=== PATIENT | female | born 1940 | race Caucasian/White ===

== ENCOUNTER → 2018-03-30 | Outpatient (CLI) | payer MEDICARE, MEDICAID | END | disposition home or self-care (01) | LOC: HKI 10:38 | DX: M16.11 Unilateral primary osteoarthritis, right hip (principal); E11.9 Type 2 diabetes mellitus without complications | CPT/HCPCS: 73502 ==

== ENCOUNTER → 2018-05-11 | Outpatient (CLI) | payer MEDICARE, MEDICAID | END | disposition home or self-care (01) | LOC: HKI 11:08 | DX: Z01.818 Encounter for other preprocedural examination (principal) | CPT/HCPCS: 87081; G0463 ==

== ENCOUNTER → 2018-05-11 | Outpatient (CLI) | payer MEDICARE, MEDICAID | END | disposition home or self-care (01) | LOC: LAB 08:00 | DX: Z01.818 Encounter for other preprocedural examination (principal) ==

== ENCOUNTER 2018-05-21 06:38 | Inpatient (IN) | payer MEDICARE, OTHER, MEDICAID ==
[2018-05-21] MEDS: TRANEXAMIC ACID 1,000 MG in NS 100 ML PRE-OP X1 IVPB (06:00)
[2018-05-21] MEDS: TRANEXAMIC ACID 1,000 MG in NS 100 ML INTRA-OP X1 IVPB (06:00)
[2018-05-21] MEDS: LACTATED RINGER'S 1,000 ML IV* (06:00)
[2018-05-21] MEDS ORDERED: CEFAZOLIN 2 GM/50 ML (PMX) 50 ML IVPB (07:00)
[2018-05-21] MEDS: ACETAMINOPHEN 1000MG/100ML IV 100 ML IVPB (07:37)
[2018-05-21] MEDS: LANSOPRAZOLE 30 MG CAP PO (07:37)
[2018-05-21] MEDS: DEXAMETHASONE 4 MG/ML 1 ML INJ IV (07:38)
[2018-05-21] MEDS: ONDANSETRON 4 MG INJ IV ×4 (07:38→20:40)
[2018-05-21] MEDS ORDERED: BETHANECHOL 25 MG TAB PO (08:00)
[2018-05-21] MEDS ORDERED: KETOROLAC 15 MG INJ IV (08:00)
[2018-05-21] MEDS ORDERED: NACL 0.9% 3 ML SYG IV (08:00)
[2018-05-21] MEDS ORDERED: NALOXONE (0.4 MG/ML) INJ IV (08:00)
[2018-05-21] MEDS ORDERED: DIPHENHYDRAMINE 50 MG INJ IV ×2 (08:00→09:00)
[2018-05-21] MEDS ORDERED: MAGNESIUM HYDROXIDE 30ML CUP PO (08:00)
[2018-05-21] MEDS ORDERED: oxyCODONE 5 MG TAB PO ×2 (08:00)
[2018-05-21] MEDS ORDERED: SENNA/DOCUSATE NA (8.6MG/50MG) TAB PO (08:00)
[2018-05-21] MEDS ORDERED: BISACODYL 10 MG SUPP PR (08:00)
[2018-05-21] MEDS ORDERED: NA PHOSPHATE/BIPHOS 133 ML ENEMA PR (08:00)
[2018-05-21] MEDS ORDERED: METOCLOPRAMIDE 10 MG INJ (08:20)
[2018-05-21] MEDS ORDERED: FENTAnyl 50 MCG/ML VIAL (08:20)
[2018-05-21] MEDS ORDERED: MIDAZOLAM 1 MG/ML 2 ML INJ (08:20)
[2018-05-21] MEDS ORDERED: BUPIVACAINE 0.75%/DEXT (SPINAL) 2 ML INJ (08:20)
[2018-05-21] MEDS ORDERED: CEFAZOLIN 1 GM INJ (08:36)
[2018-05-21] MEDS ORDERED: ETOMIDATE 20 MG INJ (08:37)
[2018-05-21] MEDS ORDERED: ROPIVACAINE 0.5 % 30 ML VIAL (08:53)
[2018-05-21] MEDS ORDERED: LABETALOL HCL 20MG INJ IV (09:00)
[2018-05-21] MEDS ORDERED: CEFAZOLIN 1 GM/50 ML (PMX) 50 ML IVPB (09:00)
[2018-05-21] MEDS ORDERED: hydrALAzine 20 MG INJ IV (09:00)
[2018-05-21] MEDS ORDERED: MEPERIDINE 25 MG INJ IV (09:00)
[2018-05-21] MEDS: GABAPENTIN 100 MG CAP PO ×2 (09:00→22:27)
[2018-05-21] MEDS ORDERED: HYDROmorphONE 1 MG/5 ML IV SYRINGE IV ×3 (09:00)
[2018-05-21] MEDS: POLYMYXIN/BACITRACIN 1L IRRIG (09:00)
[2018-05-21] MEDS: BACITRACIN 50000 UNITS INJ (09:00)
[2018-05-21] MEDS ORDERED: ONDANSETRON 4 MG INJ IV (09:00)
[2018-05-21] MEDS: POLYMYXIN B 500000 UNIT INJ (09:01)
[2018-05-21] MEDS ORDERED: ONDANSETRON 4 MG INJ (09:53)
[2018-05-21] MEDS: DOCUSATE SODIUM 100 MG CAP PO (10:54)
[2018-05-21] MEDS: ASPIRIN (EC) 325 MG TAB PO (10:54)
[2018-05-21] MEDS: SOD CHLORIDE 0.9% 1,000 ML IV ×2 (12:33→20:13)
[2018-05-21] MEDS ORDERED: GLUCOSE GEL 15 GRAM TUBE PO ×2 (13:30)
[2018-05-21] MEDS ORDERED: DEXTROSE 50% 50 ML SYRINGE IV ×2 (13:30)
[2018-05-21] MEDS ORDERED: GLUCAGON 1 MG INJ IM (13:30)
[2018-05-21] MEDS ORDERED: GLUCOSE GEL 15 GRAM TUBE BUCCAL (13:30)
[2018-05-21] MEDS: ACCU-CHEK XX ×3 (13:40→20:41)
[2018-05-21] MEDS: CEFAZOLIN 1 GM/50 ML (PMX) 50 ML IVPB (16:30)
[2018-05-21] MEDS: metFORMIN 850 MG TAB PO (18:34)
[2018-05-21] MEDS: INSULIN ASPART [NOVOLOG] 3 ML PEN SC ×2 (18:34→20:43)
[2018-05-21] MEDS: NATEGLINIDE 60 MG TAB PO (18:34)
[2018-05-21] MEDS: ATORVASTATIN 80 MG TAB PO (20:40)
[2018-05-21] MEDS: RANITIDINE 150 MG TAB PO (20:40)
[2018-05-22] MEDS: CEFAZOLIN 1 GM/50 ML (PMX) 50 ML IVPB ×2 (00:09→07:48)
[2018-05-22] MEDS: SOD CHLORIDE 0.9% 1,000 ML IV (00:09)
[2018-05-22] MEDS: ONDANSETRON 4 MG INJ IV (01:34)
[2018-05-22 05:47] LABS: ADD MAN DIFF? NO
[2018-05-22 05:50] LABS: WHITE BLOOD COUNT 12.9 10^3/ul (4.8-10.8)
[2018-05-22 05:50] LABS: BASOPHILS % 0.1 % (0.0-2.0); EOSINOPHILS % 0.1 % (0.0-7.0); HEMATOCRIT 30.6 % (37.0-47.0); HEMOGLOBIN 9.8 g/dl (12.0-16.0); LYMPHOCYTES # 1.8 10^3/ul (0.8-2.9); LYMPHOCYTES % 13.9 % (15.0-51.0); MEAN CORPUSCULAR HEMOGLOBIN 30.2 pg (29.0-33.0); MEAN CORPUSCULAR VOLUME 94.4 fl (82.0-101.0); MEAN PLATELET VOLUME 11.1 fl (7.4-10.4); NEUTROPHILS % 77.2 % (39.0-77.0); PLATELET COUNT 194 10^3/UL (140-415); RED BLOOD COUNT 3.24 10^6/ul (4.20-5.40); RED CELL DISTRIBUTION WIDTH 13.5 % (11.5-14.5)
[2018-05-22] MEDS: LEVOTHYROXINE 100 MCG TAB PO (06:22)
[2018-05-22] MEDS: PANTOPRAZOLE (EC) 40 MG TAB PO (06:22)
[2018-05-22 06:39] LABS: ANION GAP 14 (8-16); BLOOD UREA NITROGEN 18 mg/dl (7-20); CALCIUM 8.6 mg/dl (8.4-10.2); CARBON DIOXIDE 22 mmol/L (21-31); CHLORIDE 109 mmol/L (97-110); CREATININE 0.74 mg/dl (0.44-1.00); GLUCOSE 193 mg/dl (70-220); POTASSIUM 4.2 mmol/L (3.5-5.1); SODIUM 141 mmol/L (135-144)
[2018-05-22] MEDS: metFORMIN 850 MG TAB PO ×2 (07:52→12:25)
[2018-05-22] MEDS: NATEGLINIDE 60 MG TAB PO ×2 (07:52→12:26)
[2018-05-22] MEDS: INSULIN ASPART [NOVOLOG] 3 ML PEN SC ×2 (07:56→12:28)
[2018-05-22] MEDS: ACCU-CHEK XX ×2 (07:56→12:28)
[2018-05-22] MEDS: CELECOXIB 100 MG CAP PO (08:27)
[2018-05-22] MEDS: DOCUSATE SODIUM 100 MG CAP PO (08:27)
[2018-05-22] MEDS: RANITIDINE 150 MG TAB PO (08:28)
[2018-05-22] MEDS: FERROUS FUMARATE (SR) TAB PO (08:28)
[2018-05-22] MEDS: GABAPENTIN 100 MG CAP PO (08:28)
[2018-05-22] MEDS: oxyCODONE 5 MG TAB PO (08:28)
[2018-05-22] MEDS: LINAGLIPTIN 5 MG TABLET PO (08:28)
[2018-05-22] MEDS: ASPIRIN (EC) 325 MG TAB PO (08:28)
[2018-05-22] MEDS: LOSARTAN 50 MG TAB PO (08:29)
[2018-05-27] MEDS ORDERED: ALENDRONATE 70 MG TAB PO (06:00)
== END 2018-05-22 17:26 | disposition home health service (06) | DRG 470 ==
LOC: REC 06:38 → MS1 11:41
PROVIDERS: Orthopaedic Surgery
PROC: 0SR902A Replacement of Right Hip Joint with Metal on Polyethylene Synthetic Substitute, Uncemented, Open Approach (ICD-10-PCS; principal; 2018-05-21 08:20)
DX: M16.11 Unilateral primary osteoarthritis, right hip (principal); E11.69 Type 2 diabetes mellitus with other specified complication; E78.2 Mixed hyperlipidemia; I10 Essential (primary) hypertension; E03.9 Hypothyroidism, unspecified; M81.0 Age-related osteoporosis without current pathological fracture; E66.9 Obesity, unspecified; K21.9 Gastro-esophageal reflux disease without esophagitis; Z96.651 Presence of right artificial knee joint
CPT/HCPCS: 71045; 73530; 80048; 82962; 85025; 86850; 86900; 86901; 87081; 88304; 88311; 97110; 97116; 97161; 97165; 97530; 97535

== ENCOUNTER → 2018-06-01 | Outpatient (CLI) | payer MEDICARE, MEDICAID | END | disposition home or self-care (01) | LOC: HKI 11:01 | DX: Z09 Encounter for follow-up examination after completed treatment for conditions other than malignant neoplasm (principal); Z96.641 Presence of right artificial hip joint | CPT/HCPCS: 73502 ==

== ENCOUNTER → 2018-06-29 | Outpatient (CLI) | payer MEDICARE, MEDICAID | END | disposition home or self-care (01) | LOC: HKI 10:46 | DX: Z47.1 Aftercare following joint replacement surgery (principal); Z96.641 Presence of right artificial hip joint | CPT/HCPCS: 73502 ==